=== PATIENT | male | born 1970 | race Caucasian/White ===

== ENCOUNTER 2024-01-28 14:27 | Outpatient (AMB) | payer BC, SELFPAY ==
--- NOTE | 2024-01-28 14:29 | A.OFFVIS_ITS ---
Intake Vital Signs 3 01/28/24 14:31 Height 6 ft 3 in Weight 304 lb 3.806 oz BMI 38.0 BP 136/68 Blood Pressure Location Lt brachial Position Sitting Pulse 83 Pulse Oximetry (%) 97 Oxygen Delivery Method Room Air Intake Visit Reasons: Pulmonary Nodule Data Operations Manager Required: No Accompanied by: Self / Same As Patient Allergies Penicillins [PCN] Allergy (Unknown, Unverified 01/28/24 14:36) RASH Medication List - Last Reconciled 01/28/24 by Otilia Liao LPN lamotrigine (Lamictal) 75 mg PO BID valacyclovir (Valtrex) 500 mg PO BID PRN HPI Pulmonary Nodule 2 HPI0 Details Nelson is a pleasant 53 year old male, never smoker, with underlying obstructive sleep apnea, chronic nonalcoholic liver disease, mood disorder on lamictal. He was referred by PCP for evaluation of incidental finding of pulmonary nodules. He initially had abdominal CT for abdominal pain which revealed a 6 mm nodule of LLL. He was then sent for a dedicated chest CT in November which revealed multiple pulmonary nodules bilaterally <6mm. Report below. He reports occasional dyspnea on exertion and underwent cardiology evaluation with echo EF 55-60%. He reports recent PFT, unfortunately report is unavailable today. He denies any prior history of asthma or any pertinent family history. He reports mild seasonal/perennial allergies. He denies any occupational exposures. He recently had a home sleep study through [facility] which revealed mild TARA and will be having an in lab sleep study tonight. [facility] Social History (Updated 01/28/24 @ 14:37 by Otilia Liao LPN) Patient Tobacco Use Status: Never used Tobacco Smoked in Last 30 Days: No Review of Systems Const Denies chills, Denies excessive sweating, Denies fever(s), Denies headache(s) and Denies night sweats Eyes Denies dry eyes, Denies irritation and Denies itchy eyes ENT Reports Normal hearing present, Denies headache(s), Denies nasal congestion, Denies nasal discharge, Denies post nasal drip and Denies sore throat Card Denies chest pain, Denies chest pain at rest, Denies chest pain with activity, Denies claudication, Denies leg edema, Denies dyspnea, Denies dyspnea on exertion, Denies orthopnea and Denies paroxysmal nocturnal dyspnea Resp Denies chest congestion, Denies cough, Denies excessive phlegm production, Denies pain on inspiration, Denies pain with cough, Denies dyspnea, Denies dyspnea on exertion, Denies stridor and Denies wheezing Musc Denies myalgias Neuro Reports Normal hearing present and Denies headache(s) Endo Denies excessive sweating Bakari/Lymph Denies lymphadenopathy Aller/Immun Denies itchy eyes, Denies seasonal rhinorrhea and Denies wheezing Physical Exam Vital Signs: Last Vital Signs Pulse 83 01/28/24 14:31 BP 136/68 01/28/24 14:31 Pulse Ox 97 01/28/24 14:31 Oxygen Delivery Method Room Air 01/28/24 14:31 BMI result Body Mass Index 38.0 Const General: cooperative, healthy appearing, comfortable, no acute distress, well developed and alert Nutritional Appearance: obese Orientation/consciousness: patient oriented x3 Limitations: no limitations HEENT Head: Yes normal to inspection, Yes normocephalic and Yes atraumatic Ears: hearing grossly normal bilaterally and external ears normal Eyes General: appearance normal, both eyes and all related structures Eyelids: Yes eyelids normal Sclerae: sclerae normal EOM: EOMs intact bilaterally Neck Neck: Yes normal visual inspection and Yes no lymphadenopathy Lymphatic: no lymphadenopathy noted Chest Chest palpation & inspection: normal inspection of the chest Resp Effort & Inspection: normal respiratory effort, able to speak in complete sentences, no audible wheezes, no cough, no stridor, not tachypneic, no tripod positioning and no use of accessory muscles Auscultation: clear to auscultation bilaterally Cardio Jugular venous distension: no JVD Rate: regular rate Rhythm: regular rhythm Skin Other: warm, dry General skin exam: no rashes or lesions noted Neuro General: patient oriented x3 Cranial nerves: Yes Normal hearing present Cognition (Neuro): normal cognition Gait exam (Neuro): Normal gait present Extrem General: Yes normal to inspection, Yes capillary refill normal, Yes no clubbing, cyanosis or edema and Yes no pedal edema Psych Appearance: grossly normal and well kempt Speech and movement: Normal speech and movement present and Clear speech present Affect: normal affect Attitude: cooperative Thought process: Normal thought process present Thought content: Normal thought content present Insight: Good insight present (Psych) Judgement: Good judgement present (Psych) Results Reviewed Results Reviewed: Assessment & Plan Assessment & Plan (1) Multiple pulmonary nodules: Code(s): R91.8 - Other nonspecific abnormal finding of lung field (2) Obstructive sleep apnea: Code(s): G47.33 - Obstructive sleep apnea (adult) (pediatric) Plan Bari presents for evaluation of incidental pulmonary nodules. On chest CT from 12/22, there were multiple bilateral pulmonary nodules <6mm with recommendations for a [address] Our office reached out to PCP and confirmed a [address] was entered. Once performed, will obtain report and review. In regards to respiratory symptoms, patient reports PFT performed recently but no report available. Will attempt to obtain along with sleep study that will be performed later today. He did note, that he would likely pursue TARA treatment through [facility], as they initially ordered the sleep studies. Discussed empirically trialing a daily inhaler but patient would like to hold off at this time. All questions were answered and patient is in agreement of plan. Will follow up after [address] or sooner if needed. Coding Level of Care Code New Pt Level 3 (69729) Diagnoses Multiple pulmonary nodules R91.8 Obstructive sleep apnea G47.33
[2024-01-28 14:31] VITALS: BP 136/68; PULSE 83; O2SAT 97; BMI 38.0
== END 2024-01-28 16:21 | disposition home or self-care (01) ==
PROVIDERS: PCP Physician Assistant Medical; Visit Provider Nurse Practitioner Family
DX: R91.8 Other nonspecific abnormal finding of lung field (principal); G47.33 Obstructive sleep apnea (adult) (pediatric)
CPT/HCPCS: 99203

== ENCOUNTER → 2024-01-28 14:27 | Outpatient (BNVA) | payer BC, SELFPAY | PROVIDERS: PCP Physician Assistant Medical; Visit Provider Nurse Practitioner Family ==

== ENCOUNTER 2024-02-19 09:54 | Outpatient (AMB) | payer BC, SELFPAY ==
--- NOTE | 2024-02-19 09:52 | MHC.OFFVIS ---
Intake Visit Reasons: pulmonary nodule Allergies Penicillins [PCN] Allergy (Unknown, Unverified 01/28/24 14:36) RASH HPI HPI pulmonary nodule: Details: Nelson is a pleasant 53 year old male, never smoker, with underlying obstructive sleep apnea, chronic nonalcoholic liver disease, mood disorder on lamictal and incidental finding of 6 mm pulmonary nodule of LLL. Today's visit was performed via telephone to review PFT and in lab PSG performed at [facility]. [facility] Social History (Updated 01/28/24 @ 14:37 by Otilia Liao LPN) Patient Tobacco Use Status: Never used Tobacco Review of Systems Const All systems reviewed & are unremarkable except as noted in HPI and below Physical Exam Const General: cooperative and no acute distress Orientation/consciousness: patient oriented x3 Resp Effort & Inspection: normal respiratory effort, able to speak in complete sentences and no audible wheezes Neuro General: patient oriented x3 Psych Mental Status: mental status grossly normal Speech and movement: Clear speech present Attitude: cooperative Thought process: Normal thought process present Thought content: Normal thought content present Insight: Good insight present (Psych) Judgement: Good judgement present (Psych) Telehealth Telehealth Location of provider rendering services: practice address Location of patient: address on file Patient Identification confirmed using: Name, : Yes Telehealth method: voice only Patient verbally consented to treatment: Yes Patient verbally consented to billing insurance company: Yes Patient informed of any privacy concerns related to visit: Yes Results Reviewed Results Reviewed: Assessment & Plan Assessment & Plan (1) Multiple pulmonary nodules: Code(s): R91.8 - Other nonspecific abnormal finding of lung field Category: Medical (2) Obstructive sleep apnea: Code(s): G47.33 - Obstructive sleep apnea (adult) (pediatric) Category: Medical Plan Reviewed PFT which revealed no obstructive or restrictive defect and no response to bronchodilators. Lung volumes and DLCO within normal limits. In lab PSG revealed TARA with recommendations to start CPAP therapy. Will send in prescription for APAP mode and pressure settings of 8-12 cm with close monitoring for compliance and benefits. Sleep hygiene education reviewed. He is aware if there are any issues with the mask or CPAP machine, he will call the office. All questions were answered and patient is in agreement of plan. Will follow up in 8 weeks. Coding Level of Care Code Tele Est Pt Level 4 (33069) Diagnoses Multiple pulmonary nodules R91.8 Obstructive sleep apnea G47.33 Time Spent (min) 12
== END 2024-02-19 09:55 | disposition home or self-care (01) ==
LOC: HO.HPSW 09:54
PROVIDERS: PCP Physician Assistant Medical; Visit Provider Nurse Practitioner Family
DX: R91.8 Other nonspecific abnormal finding of lung field (principal); G47.33 Obstructive sleep apnea (adult) (pediatric)
CPT/HCPCS: 99442

== ENCOUNTER → 2024-02-19 09:54 | Outpatient (BNVA) | payer BC, SELFPAY | PROVIDERS: PCP Physician Assistant Medical; Visit Provider Nurse Practitioner Family ==

== ENCOUNTER 2024-07-28 14:51 | Outpatient (AMB) | payer BC, SELFPAY ==
--- NOTE | 2024-07-28 15:02 | A.OFFVIS_ITS ---
Vital Signs 07/28/24 15:03 Height 6 ft 3 in Weight 308 lb 10.354 oz BMI 38.6 BP 140/78 H Blood Pressure Location Rt brachial Position Sitting Pulse 85 Pulse Source Pulse Oximeter Pulse Oximetry (%) 94 Oxygen Delivery Method Room Air Intake Visit Reasons: Obstructive sleep apnea Allergies Penicillins [PCN] Allergy (Unknown, Unverified 07/28/24 15:06) RASH HPI HPI Obstructive sleep apnea: Details: Nelson is a pleasant 54 year old male, never smoker, with underlying obstructive sleep apnea, chronic nonalcoholic liver disease, and mood disorder on lamictal. He has been followed for an incidental finding of 6 mm pulmonary nodule of LLL in 11/2023. Today he presents to review 6 month surveillance as well as compliance with CPAP therapy. [facility] Social History (Updated 07/28/24 @ 15:06 by Tricia Lisa [facility]) Patient Tobacco Use Status: Former Tobacco user Review of Systems Const Denies chills, Denies excessive sweating, Denies fever(s), Denies headache(s) and Denies night sweats Eyes Denies dry eyes, Denies irritation and Denies itchy eyes ENT Reports Normal hearing present, Denies headache(s), Denies nasal congestion, Denies nasal discharge, Denies post nasal drip and Denies sore throat Card Denies chest pain, Denies chest pain at rest, Denies chest pain with activity, Denies claudication, Denies leg edema, Denies orthopnea and Denies paroxysmal nocturnal dyspnea Resp Denies chest congestion, Denies cough, Denies excessive phlegm production, Denies pain on inspiration, Denies pain with cough, Denies stridor and Denies wheezing Musc Denies myalgias Neuro Reports Normal hearing present and Denies headache(s) Endo Denies excessive sweating Bakari/Lymph Denies lymphadenopathy Aller/Immun Denies itchy eyes, Denies seasonal rhinorrhea and Denies wheezing Physical Exam Vital Signs: Last Vital Signs Pulse 85 07/28/24 15:03 BP 140/78 H 07/28/24 15:03 Pulse Ox 94 07/28/24 15:03 Oxygen Delivery Method Room Air 07/28/24 15:03 BMI result Body Mass Index 38.6 Const General: cooperative, healthy appearing, comfortable, no acute distress, well developed and alert Nutritional Appearance: obese Orientation/consciousness: patient oriented x3 Limitations: no limitations HEENT Head: Yes normal to inspection, Yes normocephalic and Yes atraumatic Ears: hearing grossly normal bilaterally and external ears normal Eyes General: appearance normal, both eyes and all related structures Eyelids: Yes eyelids normal Sclerae: sclerae normal EOM: EOMs intact bilaterally Neck Neck: Yes normal visual inspection and Yes no lymphadenopathy Lymphatic: no lymphadenopathy noted Chest Chest palpation & inspection: normal inspection of the chest Resp Effort & Inspection: normal respiratory effort, able to speak in complete sentences, no audible wheezes, no cough, no stridor, not tachypneic, no tripod positioning and no use of accessory muscles Auscultation: clear to auscultation bilaterally Cardio Jugular venous distension: no JVD Rate: regular rate Rhythm: regular rhythm Skin Other: warm, dry General skin exam: no rashes or lesions noted Neuro General: patient oriented x3 Cranial nerves: Yes Normal hearing present Cognition (Neuro): normal cognition Gait exam (Neuro): Normal gait present Extrem General: Yes normal to inspection, Yes capillary refill normal, Yes no clubbing, cyanosis or edema and Yes no pedal edema Psych Appearance: grossly normal and well kempt Speech and movement: Normal speech and movement present and Clear speech present Affect: normal affect Attitude: cooperative Thought process: Normal thought process present Thought content: Normal thought content present Insight: Good insight present (Psych) Judgement: Good judgement present (Psych) Assessment & Plan Assessment & Plan (1) Multiple pulmonary nodules: Code(s): R91.8 - Other nonspecific abnormal finding of lung field Category: Medical (2) Obstructive sleep apnea: Code(s): G47.33 - Obstructive sleep apnea (adult) (pediatric) Category: Medical Plan Reviewed compliance report for the last 90 days and patient has been compliant with use of CPAP >4 hours for 87% of the time, minimal leaking noted and average AHI 0.3. Applauded patient for compliance and encouraged to continue use. He did note some difficulties with the mask, advised to [facility] to [facility] to [facility] new masks to ensure continued compliance. Reviewed chest CT which revealed stable nodules and will follow up in one year for surveillance. All questions were answered and patient is in agreement of plan. Will follow up in 3-6 months or sooner if needed. Orders: Orders CT chest wo IV con 11 Months R91.8 - Other nonspecific abnormal finding of lung field Coding Level of Care Code Est Pt Level 4 (13352) Diagnoses Multiple pulmonary nodules R91.8 Obstructive sleep apnea G47.33
[2024-07-28 15:03] VITALS: BP 140/78; PULSE 85; O2SAT 94; BMI 38.6
== END 2024-07-28 15:46 | disposition home or self-care (01) ==
PROVIDERS: PCP Physician Assistant Medical; Visit Provider Nurse Practitioner Family
DX: R91.8 Other nonspecific abnormal finding of lung field (principal); G47.33 Obstructive sleep apnea (adult) (pediatric)
CPT/HCPCS: 99214

== ENCOUNTER → 2024-07-28 14:51 | Outpatient (BNVA) | payer BC, SELFPAY | PROVIDERS: PCP Physician Assistant Medical; Visit Provider Nurse Practitioner Family ==

== ENCOUNTER 2024-10-20 15:26 | Outpatient (AMB) | payer BC, SELFPAY ==
--- NOTE | 2024-10-20 15:33 | A.OFFVIS_ITS ---
Vital Signs 10/20/24 15:34 Height 6 ft 3 in Weight 314 lb 2.539 oz BMI 39.3 BP 128/86 Blood Pressure Location Rt brachial Position Sitting Pulse 83 Pulse Source Pulse Oximeter Pulse Oximetry (%) 99 Oxygen Delivery Method Room Air Intake Visit Reasons: Obstructive sleep apnea Allergies Penicillins [PCN] Allergy (Unknown, Unverified 10/20/24 15:36) RASH HPI HPI Obstructive sleep apnea: Details: Nelson is a pleasant 54 year old male, never smoker, with underlying obstructive sleep apnea, chronic nonalcoholic liver disease, and mood disorder on lamictal. He has been followed for an incidental finding of 6 mm pulmonary nodule of LLL in 11/2023, has repeat chest CT scheduled in 06/2025. Today he presents to review compliance with CPAP therapy. [facility]. [facility] Social History Patient Tobacco Use Status: Former Tobacco user Review of Systems Const Denies chills, Denies excessive sweating, Denies fever(s), Denies headache(s) and Denies night sweats Eyes Denies dry eyes, Denies irritation and Denies itchy eyes ENT Reports Normal hearing present, Denies headache(s), Denies nasal congestion, Denies nasal discharge, Denies post nasal drip and Denies sore throat Card Denies chest pain, Denies chest pain at rest, Denies chest pain with activity, Denies claudication, Denies leg edema, Denies dyspnea, Denies dyspnea on exertion, Denies orthopnea and Denies paroxysmal nocturnal dyspnea Resp Denies chest congestion, Denies cough, Denies excessive phlegm production, Denies pain on inspiration, Denies pain with cough, Denies dyspnea, Denies dyspnea on exertion, Denies stridor and Denies wheezing Musc Denies myalgias Neuro Reports Normal hearing present and Denies headache(s) Endo Denies excessive sweating Bakari/Lymph Denies lymphadenopathy Aller/Immun Denies itchy eyes, Denies seasonal rhinorrhea and Denies wheezing Physical Exam Vital Signs: Last Vital Signs Pulse 83 10/20/24 15:34 BP 128/86 10/20/24 15:34 Pulse Ox 99 10/20/24 15:34 Oxygen Delivery Method Room Air 10/20/24 15:34 BMI result Body Mass Index 39.3 Const General: cooperative, healthy appearing, comfortable, no acute distress, well developed and alert Nutritional Appearance: obese Orientation/consciousness: patient oriented x3 Limitations: no limitations HEENT Head: Yes normal to inspection, Yes normocephalic and Yes atraumatic Ears: hearing grossly normal bilaterally and external ears normal Eyes General: appearance normal, both eyes and all related structures Eyelids: Yes eyelids normal Sclerae: sclerae normal EOM: EOMs intact bilaterally Neck Neck: Yes normal visual inspection and Yes no lymphadenopathy Lymphatic: no lymphadenopathy noted Chest Chest palpation & inspection: normal inspection of the chest Resp Effort & Inspection: normal respiratory effort, able to speak in complete sentences, no audible wheezes, no cough, no stridor, not tachypneic, no tripod positioning and no use of accessory muscles Auscultation: clear to auscultation bilaterally Cardio Jugular venous distension: no JVD Rate: regular rate Rhythm: regular rhythm Skin Other: warm, dry General skin exam: no rashes or lesions noted Neuro General: patient oriented x3 Cranial nerves: Yes Normal hearing present Cognition (Neuro): normal cognition Gait exam (Neuro): Normal gait present Extrem General: Yes normal to inspection, Yes capillary refill normal, Yes no clubbing, cyanosis or edema and Yes no pedal edema Psych Appearance: grossly normal and well kempt Speech and movement: Normal speech and movement present and Clear speech present Affect: normal affect Attitude: cooperative Thought process: Normal thought process present Thought content: Normal thought content present Insight: Good insight present (Psych) Judgement: Good judgement present (Psych) Assessment & Plan Assessment & Plan (1) Multiple pulmonary nodules: Code(s): R91.8 - Other nonspecific abnormal finding of lung field Category: Medical (2) Obstructive sleep apnea: Code(s): G47.33 - Obstructive sleep apnea (adult) (pediatric) Category: Medical Plan Reviewed compliance report, patient has been compliant with use of CPAP >4 hours for 90% of the time, minimal leaking noted and average AHI 0.3. Applauded patient for compliance and encouraged to continue use. Reviewed chest CT which revealed stable nodules and will follow up in one year for surveillance, order placed for 06/2025. All questions were answered and patient is in agreement of plan. Will follow up in 3months or sooner if needed. Coding Level of Care Code Est Pt Level 3 (50580) Diagnoses Multiple pulmonary nodules R91.8 Obstructive sleep apnea G47.33
[2024-10-20 15:34] VITALS: BP 128/86; PULSE 83; O2SAT 99; BMI 39.3
== END 2024-10-20 16:09 | disposition home or self-care (01) ==
PROVIDERS: PCP Physician Assistant Medical; Visit Provider Nurse Practitioner Family
DX: R91.8 Other nonspecific abnormal finding of lung field (principal); G47.33 Obstructive sleep apnea (adult) (pediatric)
CPT/HCPCS: 99213

== ENCOUNTER → 2024-10-20 15:26 | Outpatient (BNVA) | payer BC, SELFPAY | PROVIDERS: PCP Physician Assistant Medical; Visit Provider Nurse Practitioner Family ==

== ENCOUNTER 2025-01-19 16:01 | Outpatient (AMB) | payer BC, SELFPAY ==
[2025-01-19 16:03] VITALS: BP 140/76; PULSE 92; O2SAT 98; BMI 38.6
--- NOTE | 2025-01-19 16:03 | MHC.OFFVIS ---
Vital Signs 01/19/25 16:03 Height 6 ft 3 in Weight 308 lb 10.354 oz BMI 38.6 BP 140/76 H Blood Pressure Location Lt brachial Position Sitting Pulse 92 Pulse Source Pulse Oximeter Pulse Oximetry (%) 98 Oxygen Delivery Method Room Air Intake Visit Reasons: Obstructive sleep apnea In Room Dining Server Required: No Shipping Lead: Shipping Lead offered & declined Accompanied by: Self / Same As Patient Allergies Penicillins [PCN] Allergy (Unknown, Unverified 01/19/25 16:08) RASH Medication List - Last Reconciled 01/19/25 by Otilia Liao LPN lamotrigine (Lamictal) 75 mg PO BID sildenafil (Viagra) 100 mg PO DAILY PRN valacyclovir (Valtrex) 500 mg PO BID PRN HPI HPI Obstructive sleep apnea: Details: Nelson is a pleasant 54 year old male, never smoker, with underlying moderate obstructive sleep apnea AHI 13.4, chronic nonalcoholic liver disease, and mood disorder on lamictal. He has been followed for an incidental finding of 6 mm pulmonary nodule of LLL in 11/2023, has repeat chest CT scheduled in 06/2025. He has been using CPAP therapy with APAP mode and pressures of 8-12 cmH2O and benefitting from use. Today he presents to review compliance with CPAP therapy. [facility] He currently denies any respiratory symptoms or any visits to urgent care/hospitalizations related to respiratory distress. [facility] Social History (Updated 01/19/25 @ 16:10 by Otilia Liao LPN) Patient Tobacco Use Status: Never used Tobacco Years Smoked: Pt smoked for one week only in 1990. Review of Systems Const Denies chills, Denies excessive sweating, Denies fever(s), Denies headache(s) and Denies night sweats Eyes Denies dry eyes, Denies irritation and Denies itchy eyes ENT Reports Normal hearing present, Denies headache(s), Denies nasal congestion, Denies nasal discharge, Denies post nasal drip and Denies sore throat Card Denies chest pain, Denies chest pain at rest, Denies chest pain with activity, Denies claudication, Denies leg edema, Denies dyspnea, Denies dyspnea on exertion, Denies orthopnea and Denies paroxysmal nocturnal dyspnea Resp Denies chest congestion, Denies cough, Denies excessive phlegm production, Denies pain on inspiration, Denies pain with cough, Denies dyspnea, Denies dyspnea on exertion, Denies stridor and Denies wheezing Musc Denies myalgias Neuro Reports Normal hearing present and Denies headache(s) Endo Denies excessive sweating Bakari/Lymph Denies lymphadenopathy Aller/Immun Denies itchy eyes, Denies seasonal rhinorrhea and Denies wheezing Physical Exam Vital Signs: Last Vital Signs Pulse 92 01/19/25 16:03 BP 140/76 H 01/19/25 16:03 Pulse Ox 98 01/19/25 16:03 Oxygen Delivery Method Room Air 01/19/25 16:03 BMI result Body Mass Index 38.6 Const General: cooperative, healthy appearing, comfortable, no acute distress, well developed and alert Nutritional Appearance: obese Orientation/consciousness: patient oriented x3 Limitations: no limitations HEENT Head: Yes normal to inspection, Yes normocephalic and Yes atraumatic Ears: hearing grossly normal bilaterally and external ears normal Eyes General: appearance normal, both eyes and all related structures Eyelids: Yes eyelids normal Sclerae: sclerae normal EOM: EOMs intact bilaterally Neck Neck: Yes normal visual inspection and Yes no lymphadenopathy Lymphatic: no lymphadenopathy noted Chest Chest palpation & inspection: normal inspection of the chest Resp Effort & Inspection: normal respiratory effort, able to speak in complete sentences, no audible wheezes, no cough, no stridor, not tachypneic, no tripod positioning and no use of accessory muscles Auscultation: clear to auscultation bilaterally Cardio Jugular venous distension: no JVD Rate: regular rate Rhythm: regular rhythm Skin Other: warm, dry General skin exam: no rashes or lesions noted Neuro General: patient oriented x3 Cranial nerves: Yes Normal hearing present Cognition (Neuro): normal cognition Gait exam (Neuro): Normal gait present Extrem General: Yes normal to inspection, Yes capillary refill normal, Yes no clubbing, cyanosis or edema and Yes no pedal edema Psych Appearance: grossly normal and well kempt Speech and movement: Normal speech and movement present and Clear speech present Affect: normal affect Attitude: cooperative Thought process: Normal thought process present Thought content: Normal thought content present Insight: Good insight present (Psych) Judgement: Good judgement present (Psych) Assessment & Plan Assessment & Plan (1) Multiple pulmonary nodules: Code(s): R91.8 - Other nonspecific abnormal finding of lung field Category: Medical (2) Obstructive sleep apnea: Code(s): G47.33 - Obstructive sleep apnea (adult) (pediatric) Category: Medical Plan Reviewed compliance report, patient has been compliant with use of CPAP therapy >4 hours for 100% of the time, minimal leaking noted and average AHI <1. Patient has been benefitting from therapy and is motivated to continue to use. All questions were answered and patient is in agreement of plan. Will follow up in 3 months or sooner if needed. Coding Level of Care Code Est Pt Level 4 (68923) Diagnoses Multiple pulmonary nodules R91.8 Obstructive sleep apnea G47.33
== END 2025-01-19 16:39 | disposition home or self-care (01) ==
LOC: HO.HPS 16:01
PROVIDERS: PCP Physician Assistant Medical; Visit Provider Nurse Practitioner Family
DX: R91.8 Other nonspecific abnormal finding of lung field (principal); G47.33 Obstructive sleep apnea (adult) (pediatric)
CPT/HCPCS: 99214

== ENCOUNTER → 2025-01-19 16:01 | Outpatient (BNVA) | payer BC, SELFPAY | PROVIDERS: PCP Physician Assistant Medical; Visit Provider Nurse Practitioner Family ==

== ENCOUNTER 2025-04-27 15:49 | Outpatient (AMB) | payer BC, SELFPAY ==
[2025-04-27 15:57] VITALS: BP 122/78; PULSE 90; O2SAT 95; BMI 38.8
--- NOTE | 2025-04-27 15:57 | MHC.OFFVIS ---
Vital Signs 04/27/25 15:57 Height 6 ft 3 in Weight 310 lb 13.628 oz BMI 38.8 BP 122/78 Blood Pressure Location Lt brachial Position Sitting Pulse 90 Pulse Source Pulse Oximeter Pulse Oximetry (%) 95 Oxygen Delivery Method Room Air Intake Visit Reasons: rachel Allergies Penicillins (PCN) Allergy (Unknown, Unverified 04/27/25 15:59) RASH HPI HPI rachel: Details: Nelson is a pleasant 55 year old male, never smoker, with underlying moderate obstructive sleep apnea AHI 13.4, chronic nonalcoholic liver disease, and mood disorder on lamictal. He has been followed for an incidental finding of 6 mm pulmonary nodule of LLL in 11/2023, has repeat chest CT [place] [facility] [place] He has been using CPAP therapy with APAP mode pressures of [id number] consistently, however reports some difficulties with proper fit of the mask. He is currently using a fullface mask and has not trialed any others to date. Today he presents to review compliance with CPAP therapy. [facility]. He currently denies any respiratory symptoms. [facility] Social History (Reviewed 04/27/25 @ 15:59 by Tricia Lisa [facility]) Patient Tobacco Use Status: Never used Tobacco Years Smoked: Pt smoked for one week only in 1990. Review of Systems Const Denies chills, Denies excessive sweating, Denies fever(s), Denies headache(s) and Denies night sweats Eyes Denies dry eyes, Denies irritation and Denies itchy eyes ENT Reports Normal hearing present, Denies headache(s), Denies nasal congestion, Denies nasal discharge, Denies post nasal drip and Denies sore throat Card Denies chest pain, Denies chest pain at rest, Denies chest pain with activity, Denies claudication, Denies leg edema, Denies dyspnea, Denies dyspnea on exertion, Denies orthopnea and Denies paroxysmal nocturnal dyspnea Resp Denies chest congestion, Denies cough, Denies excessive phlegm production, Denies pain on inspiration, Denies pain with cough, Denies dyspnea, Denies dyspnea on exertion, Denies stridor and Denies wheezing Musc Denies myalgias Neuro Reports Normal hearing present and Denies headache(s) Endo Denies excessive sweating Bakari/Lymph Denies lymphadenopathy Aller/Immun Denies itchy eyes, Denies seasonal rhinorrhea and Denies wheezing Physical Exam Vital Signs: Last Vital Signs Pulse 90 04/27/25 15:57 BP 122/78 04/27/25 15:57 Pulse Ox 95 04/27/25 15:57 Oxygen Delivery Method Room Air 04/27/25 15:57 BMI result Body Mass Index 38.8 Const General: cooperative, healthy appearing, comfortable, no acute distress, well developed and alert Nutritional Appearance: obese Orientation/consciousness: patient oriented x3 Limitations: no limitations HEENT Head: Yes normal to inspection, Yes normocephalic and Yes atraumatic Ears: hearing grossly normal bilaterally and external ears normal Eyes General: appearance normal, both eyes and all related structures Eyelids: Yes eyelids normal Sclerae: sclerae normal EOM: EOMs intact bilaterally Neck Neck: Yes normal visual inspection and Yes no lymphadenopathy Lymphatic: no lymphadenopathy noted Chest Chest palpation & inspection: normal inspection of the chest Resp Effort & Inspection: normal respiratory effort, able to speak in complete sentences, no audible wheezes, no cough, no stridor, not tachypneic, no tripod positioning and no use of accessory muscles Auscultation: clear to auscultation bilaterally Cardio Jugular venous distension: no JVD Rate: regular rate Rhythm: regular rhythm Skin Other: warm, dry General skin exam: no rashes or lesions noted Neuro General: patient oriented x3 Cranial nerves: Yes Normal hearing present Cognition (Neuro): normal cognition Gait exam (Neuro): Normal gait present Extrem General: Yes normal to inspection, Yes capillary refill normal, Yes no clubbing, cyanosis or edema and Yes no pedal edema Psych Appearance: grossly normal and well kempt Speech and movement: Normal speech and movement present and Clear speech present Affect: normal affect Attitude: cooperative Thought process: Normal thought process present Thought content: Normal thought content present Insight: Good insight present (Psych) Judgement: Good judgement present (Psych) Assessment & Plan Assessment & Plan (1) Multiple pulmonary nodules: Code(s): R91.8 - Other nonspecific abnormal finding of lung field Category: Medical (2) Obstructive sleep apnea: Code(s): G47.33 - Obstructive sleep apnea (adult) (pediatric) Category: Medical Plan Reviewed compliance report, patient has been compliant with use of CPAP therapy >4 hours for 93% of the time, minimal leaking noted and average AHI 0.3. Patient has been benefitting from therapy and is motivated to continue to use. Encouraged him to reach out of to [facility] to discuss trialing a different mask, which he was agreeable to. All questions were answered and patient is in agreement of plan. Will follow up in 3 months or sooner if needed. Coding Level of Care Code Est Pt Level 4 (57045) Diagnoses Multiple pulmonary nodules R91.8 Obstructive sleep apnea G47.33
== END 2025-04-27 16:22 | disposition home or self-care (01) ==
LOC: HO.HPS 15:50
PROVIDERS: PCP Physician Assistant Medical; Visit Provider Nurse Practitioner Family
DX: R91.8 Other nonspecific abnormal finding of lung field (principal); G47.33 Obstructive sleep apnea (adult) (pediatric)
CPT/HCPCS: 99214

== ENCOUNTER → 2025-04-27 15:49 | Outpatient (BNVA) | payer BC, SELFPAY | PROVIDERS: PCP Physician Assistant Medical; Visit Provider Nurse Practitioner Family | DX: Z13.89 Encounter for screening for other disorder (principal) ==

== ENCOUNTER 2025-06-30 13:05 | Outpatient (REF) | payer BC, SELFPAY ==
--- NOTE | ~2025-06-30 | CT_ITS ---
CLINICAL HISTORY: R91.8 - Other nonspecific abnormal finding of lung field Exam: CT chest without IV contrast Comparison: None provided Findings: No acute infiltrates, pleural effusion or pneumothorax. Central airway is patent. Left apical subpleural scar medially. Right upper lobe 3 mm peripheral nodule series 4, image 43, micronodule on image 66. Right middle lobe subpleural 3 mm nodule on image 71 and image 95. Left upper lobe calcified micronodule anteriorly on image 57. Left lower lobe 3 mm nodule anteriorly on image 94, 5 mm nodule on image 76. Heart, great vessels and mediastinum are unremarkable. No lymphadenopathy. No pericardial effusion. Imaged lower neck is unremarkable. Small gynecomastia on the right. Hepatic steatosis with focal fatty sparing posterior left hepatic lobe and near gallbladder fossa. Unremarkable osseous structures. Impression: 1. Several small pulmonary nodules up to 5 mm. No follow-up is needed in low risk and optional [address] follow-up is recommended in high risk patient per Fleischner Society 2017 Guidelines. 2. Hepatic steatosis. This document has been electronically signed by: Tisha Bell MD on 07/01/2025 13:58:27
== END 2025-06-30 13:06 | disposition home or self-care (01) ==
LOC: HO.CT 13:05
PROVIDERS: PCP Physician Assistant Medical; Visit Provider Nurse Practitioner Family
DX: R91.8 Other nonspecific abnormal finding of lung field (principal)
CPT/HCPCS: 71250

== ENCOUNTER → 2025-06-30 13:07 | Outpatient (BNV) | payer BC, SELFPAY | PROVIDERS: PCP Physician Assistant Medical; Visit Provider Radiology Diagnostic Radiology | DX: R91.8 Other nonspecific abnormal finding of lung field (principal); K76.0 Fatty (change of) liver, not elsewhere classified | CPT/HCPCS: 71250 ==

== ENCOUNTER 2025-07-13 15:55 | Outpatient (AMB) | payer BC, SELFPAY ==
[2025-07-13 15:58] VITALS: BP 134/86; PULSE 82; O2SAT 96; BMI 38.4
--- NOTE | 2025-07-13 15:58 | MHC.OFFVIS ---
Vital Signs 07/13/25 15:58 Height 6 ft 3 in Weight 307 lb 8.717 oz BMI 38.4 BP 134/86 Blood Pressure Location Rt brachial Position Sitting Pulse 82 Pulse Source Pulse Oximeter Pulse Oximetry (%) 96 Oxygen Delivery Method Room Air Intake Visit Reasons: Obstructive sleep apnea Allergies Penicillins (PCN) Allergy (Unknown, Unverified 07/13/25 16:00) RASH HPI HPI Obstructive sleep apnea: Details: Nelson is a pleasant 55 year old male, never smoker, with underlying moderate obstructive sleep apnea AHI 13.4, chronic nonalcoholic liver disease, and mood disorder on lamictal. He has been using CPAP therapy with APAP mode pressures of 8-12 cmH2O consistently, however reports some difficulties with proper fit of the mask. He is currently using a fullface mask and has not trialed any others to date. He has been followed for an incidental finding of 6 mm pulmonary nodule of LLL in 11/2023, had repeat chest CT scheduled in 06/2025 at [facility] [place] and presents to review results as well as compliance with CPAP therapy. [facility]. He currently denies any respiratory symptoms. [facility] Social History Patient Tobacco Use Status: Never used Tobacco Years Smoked: Pt smoked for one week only in 1990. Review of Systems Const Denies chills, Denies excessive sweating, Denies fever(s), Denies headache(s) and Denies night sweats Eyes Denies dry eyes, Denies irritation and Denies itchy eyes ENT Reports Normal hearing present, Denies headache(s), Denies nasal congestion, Denies nasal discharge, Denies post nasal drip and Denies sore throat Card Denies chest pain, Denies chest pain at rest, Denies chest pain with activity, Denies claudication, Denies leg edema, Denies dyspnea, Denies dyspnea on exertion, Denies orthopnea and Denies paroxysmal nocturnal dyspnea Resp Denies chest congestion, Denies cough, Denies excessive phlegm production, Denies pain on inspiration, Denies pain with cough, Denies dyspnea, Denies dyspnea on exertion, Denies stridor and Denies wheezing Musc Denies myalgias Neuro Reports Normal hearing present and Denies headache(s) Endo Denies excessive sweating Bakari/Lymph Denies lymphadenopathy Aller/Immun Denies itchy eyes, Denies seasonal rhinorrhea and Denies wheezing Physical Exam Vital Signs: Last Vital Signs Pulse 82 07/13/25 15:58 BP 134/86 07/13/25 15:58 Pulse Ox 96 07/13/25 15:58 Oxygen Delivery Method Room Air 07/13/25 15:58 BMI result Body Mass Index 38.4 Const General: cooperative, healthy appearing, comfortable, no acute distress, well developed and alert Nutritional Appearance: obese Orientation/consciousness: patient oriented x3 Limitations: no limitations HEENT Head: Yes normal to inspection, Yes normocephalic and Yes atraumatic Ears: hearing grossly normal bilaterally and external ears normal Eyes General: appearance normal, both eyes and all related structures Eyelids: Yes eyelids normal Sclerae: sclerae normal EOM: EOMs intact bilaterally Neck Neck: Yes normal visual inspection and Yes no lymphadenopathy Lymphatic: no lymphadenopathy noted Chest Chest palpation & inspection: normal inspection of the chest Resp Effort & Inspection: normal respiratory effort, able to speak in complete sentences, no audible wheezes, no cough, no stridor, not tachypneic, no tripod positioning and no use of accessory muscles Auscultation: clear to auscultation bilaterally Cardio Jugular venous distension: no JVD Rate: regular rate Rhythm: regular rhythm Skin Other: warm, dry General skin exam: no rashes or lesions noted Neuro General: patient oriented x3 Cranial nerves: Yes Normal hearing present Cognition (Neuro): normal cognition Gait exam (Neuro): Normal gait present Extrem General: Yes normal to inspection, Yes capillary refill normal, Yes no clubbing, cyanosis or edema and Yes no pedal edema Psych Appearance: grossly normal and well kempt Speech and movement: Normal speech and movement present and Clear speech present Affect: normal affect Attitude: cooperative Thought process: Normal thought process present Thought content: Normal thought content present Insight: Good insight present (Psych) Judgement: Good judgement present (Psych) Results Reviewed Results Reviewed: [address] [address] [address] Scan Report Signed Patient: Bari Boland MR#: [id number] : 1970 Acct:[id number] Age/Sex: 55 / M ADM Date: 06/30/25 Loc: HO.CT Attending Dr: Keisha Andrade APPLIED BEHAVIOR SCIENCE SPECIALIST Ordering Physician: Keisha nAdrade NP Date of Service: 06/30/25 Procedure(s): CT chest wo IV con Accession Number(s): [id number] cc: Tremaine Sotomayor; Keisha Andrade APPLIED BEHAVIOR SCIENCE SPECIALIST~ Report Number: [id number]: Total DLP = 234.00 mGy-cm Reason for Exam: R91.8 - Other nonspecific abnormal finding of lung field CLINICAL HISTORY: R91.8 - Other nonspecific abnormal finding of lung field Exam: CT chest without IV contrast Comparison: None provided Findings: No acute infiltrates, pleural effusion or pneumothorax. Central airway is patent. Left apical subpleural scar medially. Right upper lobe 3 mm peripheral nodule series 4, image 43, micronodule on image 66. Right middle lobe subpleural 3 mm nodule on image 71 and image 95. Left upper lobe calcified micronodule anteriorly on image 57. Left lower lobe 3 mm nodule anteriorly on image 94, 5 mm nodule on image 76. Heart, great vessels and mediastinum are unremarkable. No lymphadenopathy. No pericardial effusion. Imaged lower neck is unremarkable. Small gynecomastia on the right. Hepatic steatosis with focal fatty sparing posterior left hepatic lobe and near gallbladder fossa. Unremarkable osseous structures. Impression: 1. Several small pulmonary nodules up to 5 mm. No follow-up is needed in low risk and optional [address] follow-up is recommended in high risk patient per Fleischner Society 2017 Guidelines. 2. Hepatic steatosis. 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 Will obtain prior imaging to thoroughly compare and repeat in one year to assess stability. Order previously placed. Reviewed compliance report, patient has been compliant with use of CPAP therapy >4 hours for 100% of the time, minimal leaking noted and average AHI 0.3. Patient has been benefitting from therapy and is motivated to continue to use. Encouraged him to reach [facility] of to [facility] to discuss trialing a different mask if issues persists. All questions were answered and patient is in agreement of plan. Will follow up in 3 months or sooner if needed. Coding Level of Care Code Est Pt Level 4 (27678) Diagnoses Multiple pulmonary nodules R91.8 Obstructive sleep apnea G47.33
--- OUTSIDE RECORDS SUMMARY | 2025-07-13 21:10 | XMS_ITS | Patient Health Record ---
Author Organization [facility] [place] Address [address] [place] [address] Care Team Providers Care Auto Body Repairer Fiberglass Name Role Phone Juan C Jimenez MD Primary Care Provider Brenna Johansen Unavailable [phone] Allergies Allergen (clinical drug ingredient) Drug/Non Drug Allergy documented on EMR Reaction Allergy Type Onset Date Status Biaxin Unknown Drug Allergy Active Erythrocin Unknown Drug Allergy Active Penicillin Unknown Drug Allergy Active Z-Pac Unknown Drug Allergy Active Reason For Referral No Information Medications Medication SIG (Take, Route, Fr equency, Duration) Notes Start Date End Date Status lamoTRIgine 150 MG Orally Twice a day Active Physical Therapy 3-4x per week for 3-4 weeks 11/28 Active Social History Tobacco Use: Social History Observation Description Date Details (start date - stop date) Former Smoker NA - NA Tobacco Use/Smoking Question Answer Notes Are you a: former smoker Alcohol Screen Question Answer Notes Did you have a drink contain ing alcohol in the past year? Yes How often did you have a dri nk containing alcohol in the past year? Monthly or less (1 point) How many drinks did you have on a typical day when you were drinking in the past year? 1 or 2 drinks (0 point) How often did you have 6 or more drinks on one occasion in the past year? Never (0 point) Points 1 Interpretation Negative Tobacco use other than smoking: Question Answer Notes Are you an other tobacco user? No Problems No Known Problems Plan Of Treatment No Information Insurance Providers Payer Name Payer Address Payer Phone Subscriber Number Group Number Insured Name Patient Relationship to Insured Coverage Start Date Coverage End Date [facility] [address] [place] [address] [id number] Bari Boland Self - patient is the insured Medical (General) History Medical History History ICD Code Gall bladder problems Chicken pox mood disorder
== END 2025-07-13 16:16 | disposition home or self-care (01) ==
LOC: HO.HPS 15:56
PROVIDERS: PCP Physician Assistant Medical; Visit Provider Nurse Practitioner Family
DX: R91.8 Other nonspecific abnormal finding of lung field (principal); G47.33 Obstructive sleep apnea (adult) (pediatric)
CPT/HCPCS: 99214

== ENCOUNTER 2025-10-19 15:52 | Outpatient (AMB) | payer BC, SELFPAY ==
--- NOTE | 2025-10-19 15:54 | MHC.OFFVIS ---
Vital Signs 10/19/25 15:55 Height 6 ft 3 in Weight 310 lb 13.628 oz BMI 38.8 BP 120/84 Blood Pressure Location Lt brachial Position Sitting Pulse 72 Pulse Source Pulse Oximeter Pulse Oximetry (%) 96 Oxygen Delivery Method Room Air Intake Visit Reasons: Obstructive sleep apnea Allergies Penicillins (PCN) Allergy (Unknown, Unverified 10/19/25 15:58) RASH HPI HPI Obstructive sleep apnea: Details: Nelson is a pleasant 55 year old male, never smoker, with underlying TARA on CPAP, chronic nonalcoholic liver disease, and mood disorder on lamictal. HST 01/2024 demonstrated mild TARA AHI 13 ultimately send for in lab titration study 01/2024 which recommended CPAP in APAP mode with pressures [id number] to resolve apneic events and no nocturnal hypoxemia demonstrated. He is currently using a fullface mask and feels some improvement in TARA symptoms. At this time he denies any respiratory symptoms. Of note, he is being followed for an incidental finding of 6 mm pulmonary nodule of LLL in 11/2023, had repeat chest CT [place] in [place] [facility] [place] which was stable and will have repeat CT to assess for continued stability in one year. Today he presents to review compliance with CPAP therapy. [facility] Social History (Reviewed 10/19/25 @ 15:58 by Tricia Lisa [facility]) Patient Tobacco Use Status: Never used Tobacco Years Smoked: Pt smoked for one week only in 1990. Review of Systems Const Denies chills, Denies excessive sweating, Denies fever(s), Denies headache(s) and Denies night sweats Eyes Denies dry eyes, Denies irritation and Denies itchy eyes ENT Reports Normal hearing present, Denies headache(s), Denies nasal congestion, Denies nasal discharge, Denies post nasal drip and Denies sore throat Card Denies chest pain, Denies chest pain at rest, Denies chest pain with activity, Denies claudication, Denies leg edema, Denies dyspnea, Denies dyspnea on exertion, Denies orthopnea and Denies paroxysmal nocturnal dyspnea Resp Denies chest congestion, Denies cough, Denies excessive phlegm production, Denies pain on inspiration, Denies pain with cough, Denies dyspnea, Denies dyspnea on exertion, Denies stridor and Denies wheezing Musc Denies myalgias Neuro Reports Normal hearing present and Denies headache(s) Endo Denies excessive sweating Bakari/Lymph Denies lymphadenopathy Aller/Immun Denies itchy eyes, Denies seasonal rhinorrhea and Denies wheezing Physical Exam Vital Signs: Last Vital Signs Pulse 72 10/19/25 15:55 BP 120/84 10/19/25 15:55 Pulse Ox 96 10/19/25 15:55 Oxygen Delivery Method Room Air 10/19/25 15:55 BMI result Body Mass Index 38.8 Const General: cooperative, healthy appearing, comfortable, no acute distress, well developed and alert Nutritional Appearance: obese Orientation/consciousness: patient oriented x3 Limitations: no limitations HEENT Head: Yes normal to inspection, Yes normocephalic and Yes atraumatic Ears: hearing grossly normal bilaterally and external ears normal Eyes General: appearance normal, both eyes and all related structures Eyelids: Yes eyelids normal Sclerae: sclerae normal EOM: EOMs intact bilaterally Neck Neck: Yes normal visual inspection and Yes no lymphadenopathy Lymphatic: no lymphadenopathy noted Chest Chest palpation & inspection: normal inspection of the chest Resp Effort & Inspection: normal respiratory effort, able to speak in complete sentences, no audible wheezes, no cough, no stridor, not tachypneic, no tripod positioning and no use of accessory muscles Auscultation: clear to auscultation bilaterally Cardio Jugular venous distension: no JVD Rate: regular rate Rhythm: regular rhythm Skin Other: warm, dry General skin exam: no rashes or lesions noted Neuro General: patient oriented x3 Cranial nerves: Yes Normal hearing present Cognition (Neuro): normal cognition Gait exam (Neuro): Normal gait present Extrem General: Yes normal to inspection, Yes capillary refill normal, Yes no clubbing, cyanosis or edema and Yes no pedal edema Psych Appearance: grossly normal and well kempt Speech and movement: Normal speech and movement present and Clear speech present Affect: normal affect Attitude: cooperative Thought process: Normal thought process present Thought content: Normal thought content present Insight: Good insight present (Psych) Judgement: Good judgement present (Psych) Assessment & Plan Assessment & Plan (1) Obstructive sleep apnea: Code(s): G47.33 - Obstructive sleep apnea (adult) (pediatric) Category: Medical (2) Multiple pulmonary nodules: Code(s): R91.8 - Other nonspecific abnormal finding of lung field Category: Medical Plan Reviewed compliance report for the last 90 days which demonstrated >4 hours of use for 97% of the time, minimal leaking noted and average AHI 0.2. Patient has benefitted from therapy and is motivated to continue to use. Discussed importance of obtaining new supplies when due. All questions were answered and patient is in agreement of plan. Will follow up in 6 months or sooner if needed. Coding Level of Care Code Est Pt Level 4 (96656) Diagnoses Obstructive sleep apnea G47.33 Multiple pulmonary nodules R91.8
[2025-10-19 15:55] VITALS: BP 120/84; PULSE 72; O2SAT 96; BMI 38.8
--- OUTSIDE RECORDS SUMMARY | 2025-10-19 18:41 | XMS_ITS | Patient Health Record ---
Author Organization [facility] [place] Address [address] [place] [address] Care Team Providers Care Saw Handle Assembler Name Role Phone uJan C Jimenez MD Primary Care Provider Brenna Johansen Unavailable [phone] Allergies Allergen (clinical drug ingredient) Drug/Non Drug [...] Insured Coverage Start Date Coverage End Date [facility] [id number] [place] [address] [id number] Bari Boland Self - patient is the insured Medical (General) History Medical History History ICD Code Gall bladder problems Chicken pox mood disorder
== END 2025-10-19 16:22 | disposition home or self-care (01) ==
LOC: HO.HPS 15:53
PROVIDERS: PCP Physician Assistant Medical; Visit Provider Nurse Practitioner Family
DX: G47.33 Obstructive sleep apnea (adult) (pediatric) (principal); R91.8 Other nonspecific abnormal finding of lung field
CPT/HCPCS: 99214